=== PATIENT | female | born 2000 | race African-American/Black ===

== ENCOUNTER → 2023-05-04 | Outpatient (CLI) | payer OTHER, SELFPAY ==
[2023-05-04 11:02] LABS: AST(SGOT) 17 U/L (15-37); Alanine Aminotransfer ALT/SGPT 32 U/L (13-56); Albumin, Serum 3.1 g/dL (3.2-5.0); Alkaline Phosphatase 88 U/L (45-117); Bilirubin, Direct 0.09 mg/dL (0.00-0.30); Estradiol 270.4 pg/mL; Globulin 4.4 g/dL (2.2-4.2); Protein, Total 7.5 g/dL (6.4-8.2)
[2023-05-04 11:13] LABS: Hematocrit 41.2 % (37-47); Hemoglobin 12.9 g/dL (12.0-15.0); Mean Corp Hgb Conc 31.3 g/dL (32-36); Mean Corpuscular Hgb 26.4 pg (27.0-32.0); Mean Corpuscular Volume 84.3 fL (81-99); Mean Platelet Vol. 10.5 fl (6.2-12.0); Platelet Count 344 K/mm3 (150-450); RBC Distribution Width CV 13.1 % (11.6-14.6); RBC Distribution Width SD 39.9 fl (35.1-43.9); Red Blood Count 4.89 M/mm3 (4.2-5.4); White Blood Count 12.8 K/mm3 (4.4-11.0)
[2023-05-04 11:17] LABS: HIV - WCH Non-Reactive (Nonreactive); Hepatitis B Surface Antigen Non-Reactive (Nonreactive); Hepatitis C Antibody Non-Reactive (Nonreactive); Progesterone Level 17.54 ng/mL (See Comment); Rubella IgG Reactive (Nonreactive); Syphilis Antibodies Non-reactive
[2023-05-04 12:03] LABS: hCG Titer Quant., Serum 2086 mIU/mL (1-3)
[2023-05-04 21:19] LABS: Ferritin 111 ng/mL (8-252); Iron 39 ug/dL (50-170); Iron Binding Capacity,Total 286 ug/dL (250-450); PERCENT IRON SATURATION 13.6 % (15.0-55.0)
== END | disposition home or self-care (01) ==
LOC: LAB 09:26
PROVIDERS: PCP Family Medicine; Referring Provider Obstetrics & Gynecology; Visit Provider Obstetrics & Gynecology
DX: E61.1 Iron deficiency (principal); Z68.42 Body mass index [BMI] 45.0-49.9, adult; N92.6 Irregular menstruation, unspecified; Z12.4 Encounter for screening for malignant neoplasm of cervix; Z11.3 Encounter for screening for infections with a predominantly sexual mode of transmission
CPT/HCPCS: 36415; 80076; 82670; 82728; 83540; 83550; 84144; 84702; 85027; 86703; 86762; 86780; 86803; 86900; 86901; 87340

== ENCOUNTER → 2023-05-11 | Outpatient (CLI) | payer OTHER, SELFPAY ==
[2023-05-11 09:20] LABS: Estradiol 445.8 pg/mL
[2023-05-11 09:44] LABS: Progesterone Level 41.33 ng/mL (See Comment); hCG Titer Quant., Serum 11401 mIU/mL (1-3)
== END | disposition home or self-care (01) ==
LOC: LAB 08:15
PROVIDERS: PCP Family Medicine; Visit Provider Obstetrics & Gynecology
DX: N91.2 Amenorrhea, unspecified (principal); Z68.42 Body mass index [BMI] 45.0-49.9, adult
CPT/HCPCS: 36415; 82670; 84144; 84702

== ENCOUNTER → 2023-05-25 | Outpatient (CLI) | payer OTHER, SELFPAY ==
[2023-05-25 10:06] LABS: Progesterone Level 86.07 ng/mL (See Comment)
== END | disposition home or self-care (01) ==
PROVIDERS: PCP Family Medicine; Referring Provider Obstetrics & Gynecology; Visit Provider Obstetrics & Gynecology
DX: R79.89 Other specified abnormal findings of blood chemistry (principal)
CPT/HCPCS: 36415; 84144

== ENCOUNTER 2023-06-12 11:33 | Emergency (ER) | payer OTHER, SELFPAY ==
[2023-06-12 11:34] VITALS: BP 129/88; PULSE 86; RESP 18; TEMP 36.2; O2SAT 100; BMI 45.3
--- NOTE | 2023-06-12 11:53 | EX.ED.VIS.HA ---
HPI History of Present Illness Chief Complaint: Headache Informant: patient and parent Narrative Narrative: 11 weeks gestation here with mother increasing migraine headache over last couple days denies recent head traumas. Photophobia and phonophobia. Nausea and vomiting today. No abdominal cramping. No urinary symptoms. Will be able to use typically Imitrex however due to unable to. Allergy vasopressin. History of von Willebrand's disease. Denies urinary symptoms. Denies alcohol tobacco or illicit drug use. Prior similar symptoms: Yes PFSH PFSH Medical History Anemia Asthma Shoulder pain Home Medications Norgestimate-Ethinyl Estradiol [Sprintec] 1 tab PO DAILY 11/10/15 [History Last Taken Unknown] ferrous sulfate 325 mg (65 mg iron) tablet (Feosol) 325 mg PO DAILY 03/25/19 [History Last Taken Unknown] amoxicillin 875 mg-potassium clavulanate 125 mg tablet 1 tab PO BID #20 tabs 03/26/19 [Rx Last Taken Unknown] Allergy/AdvReac Type Severity Reaction Status Date / Time vasopressin Allergy Mild unknown Verified 06/12/23 11:34 Surgical History History of tonsillectomy and adenoidectomy History of wisdom tooth extraction right labrum repair Social History Smoking Status: Never smoker alcohol intake: never ROS ROS ED Constitutional Constitutional ED: Denies chills, fever(s) or sweats Eyes Eyes: Denies change in vision ENT ENT ED: Denies dysphagia or sore throat Cardiovascular Cardiovascular: Denies chest pain, leg edema, palpitations or racing heartbeat Respiratory/Chest Respiratory/Chest: Denies cough, dyspnea or dyspnea on exertion Gastrointestinal Gastrointestinal: Reports nausea and vomiting; Denies abdominal pain or diarrhea Genitourinary Genitourinary ED: Denies dysuria, hematuria or urinary frequency Musculoskeletal Musculoskeletal: Denies back pain, extremity pain or neck pain Integumentary Denies rash or wounds Neurologic Neurologic: Reports headache(s); Denies paresthesias or weakness EXAM Physical Exam Const Vital Signs: 06/12/23 11:34 06/12/23 13:53 Temperature 97.1 F L Temperature Source Temporal Pulse Rate 86 84 Respiratory Rate 18 18 Blood Pressure 129/88 H 126/74 H Blood Pressure Mean 101 Pulse Ox 100 99 Oxygen Delivery Method Room Air Positive well nourished and well developed Constitutional Narrative: Nontoxic wearing sunglasses. General Appearance ED: well developed and NAD HEENT Reports moist mucous membranes normocephalic and atraumatic Eyes PERRL, EOMs intact bilaterally and conjunctivae normal General Eye ED: Yes normal appearance of both eyes Neck no lymphadenopathy, supple and no meningeal signs General: Negative for tenderness Chest Wall Chest: Negative for tenderness Resp normal respiratory effort and normal air movement Effort and Inspection: symmetric chest movement; Negative for respiratory distress Cardio regular rate, regular rhythm and no murmurs Peripheral Pulses: pulses 2+ throughout GI normal to inspection, nondistended, normoactive bowel sounds and non-tender Palpation: Negative for guarding or rebound tenderness present Back/Spine no CVA tenderness and no thoracic nor lumbar tenderness Extremity normal to inspection General Extremety ED: Negative for edema or tenderness General Extremity: Negative for edema Neuro oriented x3, CN's II-XII intact bilaterally and no sensory deficits noted Sensorium / Orientation: awake and alert Skin no rashes or lesions noted and no wounds MDM MDM MDM Narrative Medical decision making narrative: Interventions / MDM: Differential diagnosis: Migraine headache. Diagnosis considered but do not suspect: No clinical meningitis My EKG interpretation: N/A Imaging independently reviewed and interpreted by myself: N/A External documents reviewed: N/A Test considered but not ordered:N/A ED course: Patient 11 weeks . Migraine symptoms with no meningismus symptoms. IV established fluids Reglan Benadryl, avoiding NSAIDs due to . Re-evaluation: 1345: Improved symptoms at this time. Discharged with outpatient follow-up. Disposition discussed with patient/family/significant other: Patient and mother Case discussed with consulting clinician: N/A This note was generated with [id number] dictation software. It may contain incorrect words, spelling, and punctuation that were not noted in checking the note before signing. Discharge Plan Triage Chief Complaint: Headache Other Complaint: Nausea/Vomiting ED Provider: Angus Bill Dx/Rx/DC Orders Clinical Impression: First trimester , Headache, migraine Instructions: 1st Trimester, ED, Migraine (Classical) Prescriptions: No Action ferrous sulfate [Feosol] 325 mg (65 mg iron) tablet 325 mg PO DAILY amoxicillin-pot clavulanate 875-125 mg tablet 1 tab PO BID Qty: 20 0RF Norgestimate-Ethinyl Estradiol [Sprintec] 1 EACH tablet 1 tab PO DAILY Patient Comments: Primary Care Provider: Jeffery Burleson Referrals: Jeffery Burleson MD [Primary Care Provider] - 1 Week Tari Arroyo MD [Med Staff - Active Staff] - Keep Anita appointment Disposition Disposition: Home, Self Care Discharge Date/Time: 06/12/23 13:56
[2023-06-12] MEDS: Metoclopramide 10 MG/2 ML Vial IV (12:26)
[2023-06-12] MEDS: 0.9% Normal Saline 1,000 ML 999 ML IV (12:26)
[2023-06-12] MEDS: DiphenhydrAMINE 50 MG/ML Syringe 25 MG IV (12:26)
[2023-06-12 13:53] VITALS: BP 126/74; PULSE 84; RESP 18; O2SAT 99
== END 2023-06-12 13:56 | disposition home or self-care (01) ==
PROVIDERS: Emergency Provider Emergency Medicine; PCP Family Medicine; Visit Provider Emergency Medicine
DX: O99.351 Diseases of the nervous system complicating pregnancy, first trimester (principal); G43.909 Migraine, unspecified, not intractable, without status migrainosus; Z3A.11 11 weeks gestation of pregnancy
CPT/HCPCS: 96361; 96374; 96375; 99283; J7030; A4216

== ENCOUNTER 2023-09-06 12:29 | Emergency (ER) | payer OTHER, SELFPAY ==
[2023-09-06 12:30] VITALS: BP 137/80; PULSE 82; RESP 16; TEMP 36.6; O2SAT 98
--- NOTE | 2023-09-06 12:56 | EX.ED.VIS.HA ---
HPI History of Present Illness Chief Complaint: Headache Detail of Chief Complaint: Headache consistent with her prior migraines. Informant: patient Onset/Context/Timing Onset: Days Context: Gradual Timing: Continuous Quality -Headache: Positive for Similar Prior Headaches and Dull Current Severity: Moderate Maximum Severity: Moderate Associated Symptoms/Injury Associated Symptoms: Positive for Nausea, Vomiting and Photophobia; Negative for Fever Injury - LUONG: Negative for Direct Trauma Narrative Narrative: 23-year-old female second trimester . History of migraine headaches which she has had since she was 7 years old. Gets them weekly to monthly. States this 1 started 1 to 2 days ago. Left-sided. Consistent with photophobia. No fall or head trauma. No prior history of intracranial bleed or brain surgery. She is on no blood thinners. States this is similar to her prior migraines. She did have an episode of nausea and vomiting today. Denies any fever or neck pain. Prior similar symptoms: Yes Recent Illness/Hospitalization: No PFSH PFSH Medical History Anemia Asthma Shoulder pain Home Medications Norgestimate-Ethinyl Estradiol [Sprintec] 1 tab PO DAILY 11/10/15 [History Last Taken Unknown] ferrous sulfate 325 mg (65 mg iron) tablet (Feosol) 325 mg PO DAILY 03/25/19 [History Last Taken Unknown] amoxicillin 875 mg-potassium clavulanate 125 mg tablet 1 tab PO BID #20 tabs 03/26/19 [Rx Last Taken Unknown] Allergy/AdvReac Type Severity Reaction Status Date / Time vasopressin Allergy Mild unknown Verified 06/12/23 11:34 Surgical History History of tonsillectomy and adenoidectomy History of wisdom tooth extraction right labrum repair Social History Smoking Status: Never smoker alcohol intake: never ROS ROS ED ROS Narrative Nausea vomiting. Left-sided headache. Review of Systems ROS Unobtainable: Denies due to encephalopathy Constitutional Constitutional ED: Denies chills or fever(s) Eyes Eyes: Denies blurry vision ENT ENT ED: Denies ear pain, rhinorrhea or sore throat Cardiovascular Cardiovascular: Denies chest pain Respiratory/Chest Respiratory/Chest: Denies cough Gastrointestinal Gastrointestinal: Denies abdominal pain Genitourinary Genitourinary ED: Denies dysuria Musculoskeletal Musculoskeletal: Denies arthralgias or back pain Integumentary Denies abscess Neurologic Neurologic: Denies headache(s) Psychiatric Psychiatric: Denies anxiety or depression Endocrine Endocrinology: Denies polydipsia Hematologic/Lymphatic Hematologic/Lymphatic: Denies easy bleeding or easy bruising Allergic/Immunologic Allergic/Immunologic ED: Denies mouth swelling or tongue swelling EXAM Physical Exam Narrative Exam Narrative: 23-year-old female no acute distress. Vital signs stable afebrile. Sitting upright in bed. Darkened room. Significant other bedside. H EENT exam unremarkable. Pupils round reactive light. Motion intact. No droop. Normal speech. No trauma. Nontender. Neck nontender no lymphadenopathy. Lungs clear to auscultation bilateral. Heart regular rhythm no murmur. Rate about 80. Abdomen soft nontender. Distended consistent with psychogenic . Moving all 4 extremities. Nontender no edema. Neurologic exam normal. NIH is 0. Const Vital Signs: 09/06/23 12:30 Temperature 98 F Temperature Source Temporal Pulse Rate 82 Respiratory Rate 16 Blood Pressure 137/80 H Blood Pressure Mean 99 Pulse Ox 98 Oxygen Delivery Method Room Air Positive well nourished and well developed; Negative for obese, cachectic, contractures or unkempt General Appearance ED: well developed and NAD; Negative for unkempt, cachectic, contractures, cyanotic, diaphoretic or pallor Nutritional Appearance: Negative for cachectic or obese HEENT Reports normocephalic and moist mucous membranes atraumatic; Negative for trauma, tenderness, temporal artery tenderness or vesicular rash Face and Sinus: Negative for sinus tenderness Eyes PERRL and EOMs intact bilaterally General Eye ED: Negative for pale conjunctiva, scleral icterus or other Neck no lymphadenopathy, supple, no meningeal signs and no JVD General: Negative for tenderness Resp normal respiratory effort and clear to auscultation bilaterally Effort and Inspection: Negative for retractions Auscultation: Negative for rales, rhonchi or wheezes Cardio regular rate, regular rhythm, S1 normal heart sound, S2 normal heart sound and no murmurs Rate: Negative for bradycardia or tachycardic Rhythm: Negative for abnormal rhythm GI non-tender and non-distended Auscultation: normoactive bowel sounds Palpation: soft; Negative for firm or tender Back/Spine no CVA tenderness General Back: Negative for CVA tenderness Cervical Spine: Negative for cervical spine tenderness Thoracic Spine / Upper Back: Negative for thoracic spinal tenderness Lumbar Spine / Lower Back: Negative for lumbar spinal tenderness Extremity normal to inspection, full ROM and normal capillary refill General Extremety ED: Negative for edema or tenderness General Extremity: Negative for edema Neuro oriented x3 and CN's II-XII intact bilaterally Neuro Narrative: Logic exam normal. NIH score normal. Fingertip to nose within normal limits. Bilateral farm laborer strength. Bilateral dorsi plantarflexion. Normal speech. No facial droop. Sensorium / Orientation: awake, alert, oriented to person, oriented to place and oriented to time; Negative for orientation impaired, lethargic or stuporous Coordination / Balance: [id number] test normal Speech: speech normal Motor Exam: strength 5/5 throughout Psych mental status grossly normal Appearance: Negative for unkempt Attitude: No agitated Mood & Affect: Negative for depressed Skin General Skin Exam: elasticity normal; Negative for jaundice or pallor Lesions: no lesions Rashes: no rashes MDM MDM MDM Narrative Medical decision making narrative: 23-year-old female with a left-sided headache consistent with her prior migraines. Exam normal. Neurologic exam normal. She will be treated IV fluids, Benadryl and Reglan which she has had before in the past that worked for her. Repeat exam patient doing well at 2 PM. Headache is resolved. Neurologic exam normal. She and her significant other comfortable with her being discharged home. History & Record Review Discussion w/independent historian: Patient and Family Additional record(s) reviewed:: Prior outpatient record, Prior ED visit and Prior labs Discharge Plan Triage Chief Complaint: Headache ED Provider: Camilo Parks Dx/Rx/DC Orders Clinical Impression: Headache, migraine, Second trimester Instructions: ED, Migraine (Classical) Prescriptions: No Action ferrous sulfate [Feosol] 325 mg (65 mg iron) tablet 325 mg PO DAILY amoxicillin-pot clavulanate 875-125 mg tablet 1 tab PO BID Qty: 20 0RF Norgestimate-Ethinyl Estradiol [Sprintec] 1 EACH tablet 1 tab PO DAILY Patient Comments: Primary Care Provider: Jeffery Burleson Referrals: Jeffery Burleson MD [Primary Care Provider] - As Needed Activity Restrictions/Additional Instructions: Plenty of fluids and rest. Tylenol as needed. Follow-up with your primary care physician as needed and your EQUINE VET as scheduled. Return if feeling worse. Disposition Disposition: Home, Self Care
[2023-09-06] MEDS: 0.9% Normal Saline (1000mL) 1,000 ML 999 ML IV (13:08)
[2023-09-06] MEDS: DiphenhydrAMINE 50 MG/ML Syringe IV (13:08)
[2023-09-06] MEDS: Metoclopramide 10 MG/2 ML Vial 5 MG IV (13:08)
[2023-09-06 14:21] VITALS: BMI 31.7
== END 2023-09-06 14:22 | disposition home or self-care (01) ==
PROVIDERS: Emergency Provider Emergency Medicine; PCP Family Medicine; Visit Provider Emergency Medicine
DX: O99.352 Diseases of the nervous system complicating pregnancy, second trimester (principal); O99.891 Other specified diseases and conditions complicating pregnancy; G43.909 Migraine, unspecified, not intractable, without status migrainosus; J45.909 Unspecified asthma, uncomplicated; Z3A.00 Weeks of gestation of pregnancy not specified; O99.512 Diseases of the respiratory system complicating pregnancy, second trimester
CPT/HCPCS: 96361; 96374; 96375; 99283